=== PATIENT | female | born 1975 | race American Indian/Alaskan Native ===

== ENCOUNTER 2017-01-18 06:02 | Observation (INO) | payer BC ==
[2017-01-12 12:03] LABS: Basophils % (Auto) 0.6 % (0.0-1.8); Eosinophils % (Auto) 0.5 % (0.0-4.3); Hematocrit 34.4 % (30.3-42.9); Hemoglobin 10.8 gm/dl (10.1-14.3); Mean Corpuscular HGB Conc 31 % (30-34); Mean Corpuscular Volume 82 fl (79-97); Platelet Count 456 K/mm3 (140-440); Red Blood Count 4.19 M/mm3 (3.65-5.03); White Blood Count 6.2 K/mm3 (4.5-11.0)
--- NOTE | 2017-01-12 12:03 | Anesthesia Consultation ---
Anesthesia Consult and Med Hx Date of service: 01/12/17 - Airway Anesthetic Teeth Evaluation: Good, Crowns (top left molar) ROM Head & Neck: Adequate Mental/Hyoid Distance: Adequate Mallampati Class: Class II Intubation Access Assessment: Probably Good - Pulmonary Exam CTA: Yes - Cardiac Exam Cardiac Exam: RRR - Pre-Operative Health Status ASA Pre-Surgery Classification: ASA2 Proposed Anesthetic Plan: General - Pulmonary Hx Smoking: No Hx Asthma: No Hx Sleep Apnea: No - Cardiovascular System Hx Hypertension: No - Central Nervous System Hx Seizures: No CVA: No Hx Psychiatric Problems: No - Gastrointestinal Hx Gastroesophageal Reflux Disease: Yes - Endocrine Hx Renal Disease: No Hx Liver Disease: No Hx Thyroid Disease: No - Hematic Hx Anemia: Yes - Other Systems Hx Alcohol Use: Yes (occas) Hx Cancer: No Hx Obesity: Yes - Additional Comments Anesthesia Medical History Comments: DISCUSSED TAP BLOCK BUT PATIENT DID NOT WANT ONE. NO PRIOR ANESTHESIA PROBLEMS.
[2017-01-12 12:07] LABS: Mean Corpuscular Hemoglobin 26 pg (28-32); Red Cell Distribution Width 20.7 % (13.2-15.2)
--- NOTE | 2017-01-17 18:23 | History and Physical Report ---
History of Present Illness Date of examination: 01/12/17 Chief complaint: Severe dysmenorrhea and menorrhagia with a history of anemia History of present illness: Past History : 3 Term Births: 2 Premature Births: 0 Living Children: 2 Para: 2 Aborta: 1 Elect. 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 Abnormal PAP: positive Infection History HIV Risk Eval: no Hx of STD: None Active Medications (reviewed today): IBUPROFEN 800 MG TABS (IBUPROFEN) 1 po TID (PRN) OXYCODONE-ACETAMINOPHEN 5-325 MG TABS (OXYCODONE-ACETAMINOPHEN) 1-2po q6h NAPROSYN 250 MG ORAL TABS (NAPROXEN) 2 tabs po with onset of pain then 1 tab po q6hrs prn IRON CR-TABS (FERROUS FUMARATE CR-TABS) GOODYS EXTRA STRENGTH PACK ([id number] PACK) Current Allergies (reviewed today): No known allergies Past Medical History: Reviewed history from 07/27/2013 and no changes required: Anemia Past Surgical History: Reviewed history from 08/02/2008 and no changes required: Tubal Ligation Social History: Reviewed history from 12/01/2016 and no changes required: Patient is , Smoking History: Patient has never smoked. Risk Factors: Smoked Tobacco Use: Never smoker Alcohol use: yes PAP Smear History: Date of Last PAP Smear: 12/01/2016 Previous Tobacco Use: Signed On - 12/29/2016 Smoked Tobacco Use: Never smoker Smokeless Tobacco Use: Never Passive smoke exposure: no Drug use: no HIV high-risk behavior: no Caffeine use: 2 drinks per day Previous Alcohol Use: Signed On - 12/29/2016 Alcohol use: yes Type: occ Drinks per day: social Exercise: no Seatbelt use: 100 % Sun Exposure: rarely PAP Smear History: Date of Last PAP Smear: 12/01/2016 Review of Systems General Denies fever, chills, sweats, anorexia, fatigue, weakness, malaise, weight loss and sleep disorder. Complains of menorrhagia and painful periods. Denies vaginal discharge, incontinence, dysuria, hematuria, urinary frequency, amenorrhea, abnormal vaginal bleeding, pelvic pain, genital sores, decreased libido, painful sex, urinary urgency, hot flashes, vaginal dryness, vaginal itching and vaginal odor. CV Denies chest pains, palpitations, syncope, dyspnea on exertion, orthopnea, PND and peripheral edema. Resp Denies cough, dyspnea at rest, excessive sputum, hemoptysis, wheezing and pleurisy. GI Denies nausea, vomiting, diarrhea, constipation, change in bowel habits, abdominal pain, melena, hematochezia, jaundice, gas/bloating, indigestion/ heartburn, dysphagia and odynophagia. Endo Denies cold intolerance, heat intolerance, polydipsia, polyphagia, polyuria and unusual weight change. Breast Denies left breast lump, right breast lump, nipple discharge, bloody discharge from nipple, breast pain, abnormal mammogram and breast enlargement. MS Denies back pain, joint pain, joint swelling, muscle cramps, muscle weakness, stiffness, arthritis, sciatica, restless legs, leg pain at night and leg pain with exertion. Derm Denies rash, itching, dryness and suspicious lesions. Neuro Denies paralysis, paresthesias, headache, seizures, tremors, vertigo, transient blindness, frequent falls, frequent headaches and difficulty walking. Psych Denies depression, anxiety, irritability and mood swings. Eyes Denies blurring, diplopia, irritation, discharge, vision loss, eye pain and photophobia. ENT Denies earache, ear discharge, tinnitus, decreased hearing, nasal congestion, nosebleeds, sore throat and hoarseness. Allergy Denies urticaria, allergic rash, hay fever and recurrent infections. Heme Denies abnormal bruising, bleeding and enlarged lymph nodes. Physical Exam Appearance: well developed, well nourished, no acute distress Other Exams Lungs: no rales, rhonchi, or wheezes Abdomen: soft, non-tender, no masses, Skin: no ulcers, xanthomas Lymph: no cervical, axillary, or inguinal adenopathy Extremities: normal alignment, no joint enlargement, crepitus, masses or tenderness; normal tone and strength Genitourinary Exam Vulva: normal, no lesions or discharge Urethral meatus: normal size and location, no lesions or discharge Urethra: no discharge Bladder: no cystocele Vagina: normal appearance, no discharge, lesions. No evidence of cystocele or rectocele. Cervix: normal appearance, no lesions, no discharge Uterus: normal position, midline, mobile Adnexa: no masses or tenderness Impression & Recommendations: Problem # 1: Menorrhagia (ICD-626.2) (HIG28-G78.0) Diagnosis explained to patient . Questions answered. Discussed with patient various medical and surgical therapies common for treatment: Hormonal/medical therapy,endometrial ablation or hysterectomy. She desires to proceed with hysterectomy with removal of fallopian tubes Consent reviewed and signed . Possible laparoscopy or laparotomy explained to patient. The risks and alternatives for this surgery were reviewed with the patient. She was informed of possible bleeding, infection, injury to bowel, bladder, ureters or other adjacent organs. She desires ovarian consservation. She was informed she may require surgery later to have her ovaries removed for a benign or mailgnant condition. The patient was instructed/informed the following: The normal length of hospital stay for this procedure. Nothing to eat or drink after midnight the evening prior to surgery. Clear liquids the day before surgery. Fleets enema the day prior to surgery. Pre-op instruction sheets given. Wound care instructions given. Infection precautions reviewed, patient to call for any signs or symptoms of infection. The usual discomforts associated with this procedure were detailed. Proper use of pain medicines was reviewed. Patient was given ample opportunity to have all her questions answered before signing informed consent. Problem # 2: DYSMENORRHEA (ICD-625.3) (WLT01-U30.6) It was extensively explained to her that her pain may persist, recur or change in nature due to the difficulty with diagnosis chronic pelvic pain or development of adhesions. She declined other treatment options at this time Medications Added to Medication List This Visit: 1) Ibuprofen 800 Mg Tabs (Ibuprofen) .... 1 po tid (prn) 2) Oxycodone-acetaminophen 5-325 Mg Tabs (Oxycodone-acetaminophen) .... 1-2po q6h Prescriptions: IBUPROFEN 800 MG TABS (IBUPROFEN) 1 po TID (PRN) #30 x 1 Entered and Authorized by: Mel Chang MD Method used: Print then Give to Patient RxID: [id number] OXYCODONE-ACETAMINOPHEN 5-325 MG TABS (OXYCODONE-ACETAMINOPHEN) 1-2po q6h #30 x 0 Entered and Authorized by: Mel Chang MD Method used: Print then Give to Patient RxID: [id number] Medications and Allergies Allergies Allergy/AdvReac Type Severity Reaction Status Date / Time No Known Allergies Allergy Verified 01/10/17 12:49 Home Medications Medication Instructions Recorded Confirmed Last Taken Type Ferrous Sulfate [Feosol] 325 mg PO BID 01/10/17 01/10/17 Unknown History Active Meds: Active Medications Celecoxib (Celebrex) 200 mg PO PREOP NR Stop: 01/18/17 23:59 Famotidine (Pepcid) 20 mg PO PREOP NR Stop: 01/18/17 23:59 Gabapentin (Neurontin) 300 mg PO PREOP NR Stop: 01/18/17 23:59 Sodium Chloride (Nacl 0.9% 1000 Ml) 1,000 mls @ 75 mls/hr IV DIRECT [facility] Midazolam HCl (Versed) 2 mg IV PREOP NR Stop: 01/18/17 23:59 Exam Vital Signs Temp Pulse Resp BP 97.7 F 80 14 116/76 01/12/17 11:30 01/12/17 11:30 01/12/17 11:30 01/12/17 11:30 Results - Labs 01/12/17 11:45 Assessment and Plan - Patient Problems (1) Menorrhagia Status: Acute Qualifiers: Menorrahagia type: M (2) Dysmenorrhea Status: Acute (3) Anemia Status: Acute Qualifiers: Anemia type: A Iron deficiency anemia type: chronic blood loss Vitamin B12 deficiency anemia type: V Folate deficiency anemia type: F Bone marrow failure anemia type: B Hemolytic anemia type: H Other causes of anemia: O Qualified Code(s): D50.0 - Iron deficiency anemia secondary to blood loss ( chronic)
[~2017-01-18 06:02] MED LIST: ANCEF/STERILE WATER 2 GM/20 ML 2 GM/20 ML SYRINGE IV NR; NACL 0.9% 1000 ML 1,000 ML IV SCH; NEURONTIN PO NR; PEPCID PO NR; VERSED IV NR
[2017-01-18] MEDS ORDERED: NACL BACTERIOSTATIC INFILTRATI ONE (06:29)
[2017-01-18] MEDS ORDERED: NEOSPORIN GU IR ONE ×2 (07:15→09:27)
[2017-01-18] MEDS ORDERED: ZEMURON IV ONE (07:20)
[2017-01-18] MEDS ORDERED: DILAUDID ONE (07:20)
[2017-01-18] MEDS ORDERED: DIPRIVAN 10 MG/ML IV ONE (07:20)
[2017-01-18] MEDS ORDERED: XYLOCAINE MPF 2% ONE (07:20)
[2017-01-18] MEDS ORDERED: ZOFRAN IV PRN ×2 (07:28→12:39)
--- NOTE | 2017-01-18 07:28 | Anesthesia Day of Surgery ---
Anesthesia Day of Surgery - Day of Surgery Patient Examined: Yes Patient H&P Reviewed: Yes Patient is NPO: Yes
[2017-01-18] MEDS ORDERED: CALCIUM CHLORIDE IV ONE (07:43)
[2017-01-18] MEDS ORDERED: THROMBIN (BOVINE) TP ONE (07:43)
--- NOTE | 2017-01-18 08:05 | Admit Criteria Form ---
Admission Criteria Documentation: AMBULATORY SURGERY EXCEPTION CRITERIA Ambulatory Surgery Exception Criteria ( Place 'X' for any and all applicable criteria): Surgery or procedure performed on ambulatory basis may require inpatient stay for[A] ANY ONE of the following(1)(2)(3)(4)(5)(6)(7)(8)(9): [X] I. A preoperative situation, condition, or finding that warrants inpatient stay as indicated by ANY ONE of the following: [X] a) Inpatient care needed because of severity of a disease or condition rather than the surgery (eg, severe cardiac or respiratory disease, severe infection) (15) (16 ) (17) (18) [] b) Emergent procedure (eg, angioplasty for acute ischemia)(19) [] c) Complex surgical approach or situation as indicated by ANY ONE of the following(3): [] i) Open approach needed instead of usual endoscopic, transcatheter, or other less invasive procedure [] ii) Difficult approach because of previous operation [] iii) Airway monitoring required after open neck procedures(20)(21) [] iv) Large mass requiring unusually extensive dissection [] v) Additional complicating feature requiring inpatient care (eg, drain management)(22(23): [] d) Major surgery in a pt with high anesthetic risk as indicated by ANY ONE of the following (2)(3)(5)(7)(8): [] i) ASA risk class III or higher (severe systemic disease impairing function) [D] [] ii) Advanced age (eg, older than 85 years)(14)(24) [] iii) Symptomatic heart failure(25) [] iv) Symptomatic asthma or COPD(8)(21) [] v) Morbid obesity with hemodynamic or respiratory problems(20)( 21)(26)(27) [] vi) Obstructive sleep apnea(20)(21) [] vii) Former premature infants who are younger than 60 weeks [] viii) High risk for severe postoperative abnormalities (eg, severe postoperative hypocalcemia after parathyroidectomy for severe hyperparathyroidism)(27)( 28) [] ix) Unstable angina(25) [] e) Drug-related risk requiring inpatient stay as indicated by ANY ONE of the following(5)(10)(14)(32)(33) [] i) Procedure requires discontinuing drugs or other therapy (eg , antiarrhythmic medication, antiseizure medication), which necessitates inpatient observation or treatment.(18)(31) [] ii) Major surgery and high risk drug use as indicated by ANY ONE of the following: [] 1) Active abuse of cocaine or similar drug [] 2) Monoamine oxidase inhibitor use [] 3) Other drug identified as posing risk [] f) Inadequate outpatient care situation as indicated by ANY ONE of the following(5)(10)(14)(32)(33) [] i) Patient lives remote from medical facility and procedure has urgent complication potential, and temporary nearby residence cannot be arranged [] ii) Patient will have postprocedure incapacitation and inadequate assistance at home, or alternative level of care cannot be arranged. [] iii) Patient will have long general anesthesia or procedure side effect resolution time, and competent person to stay with patient on first postoperative night at home or alternative level of care cannot be arranged. []iv) Other inadequate outpatient situation that cannot be handled by other means [] II. A perioperative event, condition, or finding that warrants inpatient stay as indicated by ANY ONE of the following (1)(2)(3): [] a) Inadequate physiologic recovery: cardiovascular, respiratory, or hemodynamic status not normal or near preoperative baseline(18) [] b) Hemodynamic instability [] c) Patient not alert with near normal or baseline mental status [] d) Temperature not normal or as expected and not appropriate for outpatient treatment of condition [] e) Ambulatory or appropriate activity level status not yet achieved post procedure [E](34)(35)(36) [] f) Operative site not appropriate (eg, unexpected or excessive drainage or bleeding) [] g) Postoperative effects not resolved or adequately managed (eg, significant pain or vomiting not appropriate for outpatient or next level of care)(10)(12) [] h) Complicating features requiring inpatient care as indicated by ANY ONE of the following(37): [] i) Severe complications of procedure (eg, bowel injury, airway compromise, vascular injury,severe hemorrhage) [] ii) Extensive (eg, dissection far beyond usual scope of procedure ) or prolonged (eg, 120 minutes beyond usual) surgery needed requiring inpatient postoperative care [] iii) Conversion to an open or complex procedure that requires inpatient care (eg, open vs laparoscopic cholecystectomy, abdominal vs vaginal hysterectomy)(38) [] iv) Comorbid condition or test result identified during or post procedure that requires inpatient care (7) [] v) Malignant hyperthermia(30) [] vi) Other complicating feature requiring inpatient care(22)(23) Inpatient stay may be needed until ALL of the following are present (1)(2)(3)(4) (5)(6)(10)(14)(33)(40): []a) Physiologic recovery: cardiovascular, respiratory, and hemodynamic status normal or near preoperative baseline []b) Hemodynamic stability []c) Patient alert, with near normal or baseline mental status []d) Temperature appropriate: patient afebrile or temperature appropriate for outpt treatment of condition []e) Activity level appropriate: ambulatory or appropriate activity level post procedure []f) Operative site appropriate as indicated by ALL of the following: []i) Site dry or with expected drainage []ii) Any blood noted is as expected for procedure. []g) Postoperative effects resolved or managed as indicated by ALL of the following: []i) Pain management appropriate for outpatient (or next level of) care(10) []ii) Minimal nausea and vomiting: if present, successfully treated with oral medication(12) []iii) Headache, dizziness, or drowsiness (if present) are mild. []h) Voiding status acceptable as indicated by ANY ONE of the following: []i) Voiding spontaneously []ii) No voiding but instructions given for follow-up in 6 to 8 hours []iii) Urinary catheter in place, and instructions given for follow-up []i) Complicating features requiring inpatient care manageable at a lower level of care(37) []j) Comorbid conditions manageable at a lower level of care(37) The original [employer] content created by [employer] has been revised. The portions of the content which have been revised are identified through the use of italic text or in bold, and [employer] has neither reviewed nor approved the modified material. All other unmodified content is copyright [employer]. Please see references footnoted in the original [employer] edition 2016 Admission Criteria Met: Yes
[2017-01-18] MEDS ORDERED: ZOFRAN ONE (08:44)
[2017-01-18] MEDS ORDERED: NEOSTIGMINE ONE (08:44)
[2017-01-18] MEDS ORDERED: DECADRON ONE (08:44)
[2017-01-18] MEDS ORDERED: ROBINUL ONE (08:44)
[2017-01-18] MEDS ORDERED: MARCAINE 0.5% 30 ML INFILTRATI ONE (08:46)
[2017-01-18] MEDS ORDERED: NACL 0.9% IR ONE (09:28)
[2017-01-18] MEDS ORDERED: MARCAINE 0.5% INFILTRATI ONE (09:47)
[2017-01-18] MEDS ORDERED: NACL 0.9% 1000 ML 1,000 ML ONE (09:49)
[2017-01-18] MEDS: DILAUDID IV PRN ×4 (10:15→11:00)
[2017-01-18] MEDS ORDERED: TYLENOL PR PRN (12:39)
[2017-01-18] MEDS ORDERED: REGLAN PO PRN (12:39)
[2017-01-18] MEDS ORDERED: REGLAN IV PRN (12:39)
[2017-01-18] MEDS ORDERED: ZOFRAN PO PRN (12:39)
[2017-01-18] MEDS ORDERED: MORPHINE IV PRN (12:39)
[2017-01-18] MEDS ORDERED: TORADOL IV SCH (12:39)
--- NOTE | 2017-01-18 12:40 | Operative Report ---
Operative Report Operative Report: Date of procedure: 01/18/2017 Pre-operative diagnosis: 1. Menorrhagia 2. Severe dysmenorrhea Post-operative diagnosis: 1. Menorrhagia 2. Severe dysmenorrhea 3. Right ovarian cyst Procedure name(s): 1. Robotic-assisted total hysterectomy 2. Bilateral salpingectomy 3. Right ovarian cystectomy Surgeon: Mel Chang MD Cdl Instructor: Lakshmi Gamez Anesthesia: General anesthesia Findings: Uterus is sounded to 9 cm. Enlarged left fallopian tube. Right ovarian cyst. Grossly normal appendix. Grossly normal uterus and cervix. Grossly normal left ovary. Anesthesiologist: [] Complications: None EBL: 50 mL Procedure: After risks, benefits complications, consequences, and alternatives for this procedure were discussed the patient, and she voiced understanding and desired to proceed, she was taken to the OR where general anesthesia was induced. She was placed in the dorsolithotomy position, exam under anesthesia was unremarkable. She was then prepped and draped in usual sterile fashion. Timeout was performed. Padilla catheter was introduced into the bladder. A bivalve speculum was introduced into the vagina, and the anterior lip of the cervix was grasped with a single-tooth tenaculum. The uterus was sounded to approximately 9 cm. The cervix was progressively dilated to allow the large the V care uterine manipulator. The tenaculum and speculum were removed and the Vcare manipulator was secured in place. A solution saturated laparotomy sponge was placed in the vagina. Sterile gloves were placed and attention was turned to the abdomen. A 12 mm Optiview trocar with scope and camera attached was placed through a midline vertical incision was approximately 10 cm superior to the elevated fundus of the uterus. The trocar with camera attached was placed under direct visualization. No bowel, bladder, ureteral or major blood vessel injury was noted. The abdomen was insufflated. Patient was placed in steep Trendelenburg position. Additional trocars were placed in the following positions: 8 mm robotic trocars were placed in the bilateral midclavicular lower abdominal region approximately 10 cm lateral to the midline incision. An additional 5 mm trocar was placed in the right lateral lower abdominal region approximately 2 cm superior to the anterior superior iliac crest. The midline trocar was removed and a 0 Vicryl suture was placed through the fascia of the incision using the Alen-Naldo fascia closure device. The trocar was then reintroduced. Once the trocars were in the proper position the robot was engaged. The instruments were introduced into the 8 mm trochars. Attention was turned to console. The uterus was elevated, the utero-ovarian ligaments were clamped, cauterized and incised bilaterally using 30 W of energy. Bilateral salpingectomy was performed. The left tube was adhesed to the left ovary and with both blunt and sharp dissection the tube was released and then removed. Good flow to the left ovary was noted at the end of the procedure. Then the round ligaments were clamped, cauterized and incised bilaterally. The anterior leaf of the broad ligament was elevated with both blunt and sharp dissection the bladder flap was created. Once the bladder appeared to be away from the operative field attention was turned the posterior leaf of the broad ligaments. The ligaments were elevated and dissected away from the uterine vessels. Once the outline of the [facility] [employer] uterine manipulator was visualized, the uterine vessels were clamped and cauterized bilaterally. Once blanching of the uterus was noted, and the posterior outline of the Vcare manipulator was visualized, and confirmed, colpotomy was performed down to the cup of the manipulator. This incision was extended in a circumferential manner to 9:00 and 3:00 positions. The uterine vessels were clamped, cauterized and incised. The colpotomy was completed. The uterus was then delivered through the vagina. Attention was turned to the adnexa. Right salpingectomy was performed. Cyst was removed through the vagina. The pelvis was irrigated with solution warm saline. Once hemostasis was noted the vagina was reapproximated using the V LOC 180 suture. The pelvis was again irrigated with warm normal saline. Once hemostasis was noted, platelet rich plasma was applied for further hemostasis followed by platelet poor plasma to prevent adhesions. The ureters were noted to be peristaltic and away from the operative field. The abdomen and pelvis were again visualized, no bowel, bladder, ureteral or major vascular injury was noted , hemostasis was also noted. The patient's taken out of Trendelenburg position. The midline trocar was removed and the fascia was ligated. The trocars were removed. The skin incisions were infused and Marcaine without epinephrine. The skin incisions were approximated using 4-0 Vicryl in a subcuticular manner. The incisions were then sealed with Octylseal.The laparotomy sponge was removed from the vagina, and hemostasis was noted. The patient tolerated the procedure well and was taken to recovery room in stable condition. Counts were correct x3. Clear yellow urine was noted draining into the Padilla catheter was noted.
--- NOTE | 2017-01-18 13:32 | Post Anesthesia Evaluation ---
- Post Anesthesia Evaluation Patient Participated: Yes Airway Patent: Yes Stable Respiratory Function: Yes Nausea/Vomiting: No Temp > 96.8F: Yes Pain Manageable: Yes Adequeate Hydration: Yes Anesthesia Complications: No Block Receding Appropriately: Not Applicable Patient on Ventilator: No
[2017-01-18] MEDS: LACTATED RINGERS 1,000 ML IV SCH ×2 (13:39→20:00)
[2017-01-18] MEDS: TYLENOL PO SCH ×2 (16:33→22:47)
[2017-01-18] MEDS: ANCEF/NS 1 GM/50 ML 1 GM/50 ML BAG IV SCH (16:33)
--- NOTE | 2017-01-18 19:57 | Progress Note ---
Assessment and Plan s/p RATH, (B) salpingectomy, (R) ovarian cystectomy Doing well, operative findings and procedure explained, questions answered. Importance of amubulation and IC explained. Plan of care discussed. She voiced understanding and agrees with plan of care. - Patient Problems (1) Menorrhagia Current Visit: Yes Status: Acute (2) Dysmenorrhea Current Visit: Yes Status: Acute (3) Anemia Current Visit: Yes Status: Acute Subjective - Subjective Date of service: 01/18/17 Principal diagnosis: s/p RATH, (B) salpingectomy, (R) ovarian cystectomy Interval history: Pt sat up to side of bed with my assistance, c/o gas pain, no bleeding Objective - Vital Signs Latest vital signs: Vital Signs Temp Pulse Pulse Resp BP BP Pulse Ox 01/18/17 16:45 98.0 F 72 18 120/76 01/18/17 12:10 16 01/18/17 11:45 87 13 126/73 98 01/18/17 11:30 74 12 140/88 96 01/18/17 11:15 78 14 139/91 100 01/18/17 11:00 78 13 142/85 96 01/18/17 10:45 74 12 154/85 99 01/18/17 10:40 18 01/18/17 10:25 71 14 159/85 94 01/18/17 10:15 16 01/18/17 10:10 71 17 157/86 100 01/18/17 10:05 72 15 150/83 100 01/18/17 10:00 79 20 148/87 100 01/18/17 09:57 97.2 F L 77 17 144/81 100 01/18/17 06:52 98.1 F 100 H 18 135/88 100 01/18/17 06:41 98.1 F 100 H 18 135/88 100 Intake and Output 01/18/17 01/18/17 01/18/17 06:59 14:59 22:59 Intake Total 300 585 910 Output Total 90 Balance 300 495 910 Intake: IV 300 225 550 ANCEF/NS 1 GM/50 ML 1 gm 50 In 50 ml @ 100 mls/hr IV Q8H [facility]MA Rx#:[id number] Lactated Ringers 1,000 ml 125 500 @ 125 mls/hr IV DIRECT [facility] Rx#:[id number] Oral 360 360 Output: Urine 90 Other: Total, Intake Amount 360 360 Voiding Method Toilet Indwelling Catheter # Voids Indwelling Catheter 500 - Exam Breasts: Present: deferred Cardiovascular: Present: Regular rate Lungs: Present: Clear to auscultation, Normal air movement Abdomen: Present: normal appearance, soft, normal bowel sounds Extremities: Present: normal. Absent: tenderness, edema Incision: Present: normal, dry, intact
[2017-01-18] MEDS: PERCOCET 5/325 PO PRN (19:59)
[2017-01-18] MEDS: PEPCID IV SCH (21:42)
[2017-01-19] MEDS: TYLENOL PO SCH
[2017-01-19] MEDS: ANCEF/NS 1 GM/50 ML 1 GM/50 ML BAG IV SCH (01:55)
[2017-01-19] MEDS: LACTATED RINGERS 1,000 ML IV SCH (04:00)
[2017-01-19] MEDS: PERCOCET 5/325 PO PRN ×2 (06:06→12:25)
[2017-01-19 06:08] LABS: Hematocrit 30.2 % (30.3-42.9); Hemoglobin 9.7 gm/dl (10.1-14.3)
[2017-01-19] MEDS ORDERED: MYLICON PO PRN (10:00)
[2017-01-19] MEDS: PEPCID IV SCH (10:57)
--- NOTE | 2017-01-19 13:11 | Progress Note ---
Assessment and Plan - Patient Problems (1) Menorrhagia Current Visit: Yes Status: Resolved Qualifiers: Menorrahagia type: M (2) Dysmenorrhea Current Visit: Yes Status: Resolved (3) Anemia Current Visit: Yes Status: Chronic Qualifiers: Anemia type: A Iron deficiency anemia type: other iron deficiency Vitamin B12 deficiency anemia type: V Folate deficiency anemia type: F Bone marrow failure anemia type: B Hemolytic anemia type: H Other causes of anemia: O Qualified Code(s): D50.8 - Other iron deficiency anemias (4) History of robot-assisted laparoscopic hysterectomy Current Visit: Yes Status: Acute Plan to address problem: Will observe for now, INT, Tay Possible d/c home this pm Subjective - Subjective Date of service: 01/19/17 Principal diagnosis: s/p RATH, (B) salpingectomy, (R) ovarian cystectomy Interval history: Pt resting in bed, still with lower abdominal gas pain. NO bleeding, n/v, not sure if she's ready to go home Patient reports: voiding normally, flatus, no pain well controlled Objective - Vital Signs Latest vital signs: Vital Signs Temp Pulse Pulse Resp BP 01/19/17 12:10 98.1 F 74 18 126/76 01/19/17 08:05 98.6 F 66 18 118/74 01/19/17 06:06 18 01/19/17 04:00 98.6 F 80 16 109/57 01/19/17 00:00 98.6 F 73 18 112/62 01/18/17 22:47 18 01/18/17 19:59 18 01/18/17 19:30 98.6 F 71 18 133/90 01/18/17 16:45 98.0 F 72 18 120/76 Intake and Output 01/18/17 01/19/17 01/19/17 22:59 06:59 14:59 Intake Total 1960 2100 480 Output Total 800 2300 100 Balance 1160 -200 380 Intake: IV 1600 1000 ANCEF/NS 1 GM/50 ML 1 gm 100 In 50 ml @ 100 mls/hr IV Q8H [facility] Rx#:[id number] Lactated Ringers 1,000 ml 1500 1000 @ 125 mls/hr IV DIRECT [facility]MA Rx#:[id number] Oral 360 300 480 Intake, Free Water 800 Output: Urine 800 2300 100 Indwelling Catheter 800 2300 Void 100 Other: Total, Intake Amount 360 300 240 Total, Output Amount 800 600 100 Voiding Method Indwelling Catheter Toilet # Voids Indwelling Catheter 500 Void 1 - Exam Breasts: Present: deferred Cardiovascular: Present: Regular rate Lungs: Present: Clear to auscultation Abdomen: Present: normal appearance, soft, normal bowel sounds. Absent: distention Extremities: Present: normal. Absent: tenderness, edema Incision: Present: normal, dry, intact - Labs Labs: Abnormal lab results 01/19/17 Range/Units 05:49 Hgb 9.7 L (10.1-14.3) gm/dl Hct 30.2 L (30.3-42.9) %
--- NOTE | 2017-01-19 16:08 | Discharge Summary ---
Providers - Providers Date of Admission: 01/18/17 10:43 Date of discharge: 01/19/17 Attending physician: MATTEO SCANLON Primary care physician: [employer]IST Hospitalization Condition: Good Hospital course: Spoke with patient by home.Postoperative precautions and instructions given Pt desires d/c home, feels much better Disposition: DISCHARGED TO HOME OR SELFCARE - Discharge Diagnoses (1) Menorrhagia Status: Resolved Qualifiers: Menorrahagia type: M (2) Dysmenorrhea Status: Resolved (3) Anemia Status: Chronic Qualifiers: Anemia type: A Iron deficiency anemia type: other iron deficiency Vitamin B12 deficiency anemia type: V Folate deficiency anemia type: F Bone marrow failure anemia type: B Hemolytic anemia type: H Other causes of anemia: O Qualified Code(s): D50.8 - Other iron deficiency anemias (4) History of robot-assisted laparoscopic hysterectomy Status: Acute Core Measure Documentation - Palliative Care Palliative Care/ Comfort Measures: Not Applicable - Core Measures Any of the following diagnoses?: none Exam - Constitutional Vitals: Temp Pulse Resp BP Pulse Ox 98.1 F 74 18 126/76 98 01/19/17 12:10 01/19/17 12:10 01/19/17 12:10 01/19/17 12:10 01/18/17 11:45 Plan Activity: other (no sex, no driving, ambulate on your property ~1mile a day) Weight Bearing Status: Non-Weight Bearing Diet: regular (drink ~100oz water a day, eat small meals frequently) Wound: open to air, keep clean and dry Special Instructions: no heavy lifting Additional Instructions: Alternate Tylenol and Ibuprofen as directed Follow up with: MATTEO SCANLON MD [Staff Physician] - (as scheduled)
[2017-01-19 16:10] VITALS: BP 124/76
== END 2017-01-19 16:50 | disposition home or self-care (01) ==
LOC: OR 06:02 → OB 10:43
PROVIDERS: ADMIT Obstetrics & Gynecology; ATTEND Obstetrics & Gynecology
DX: N92.0 Excessive and frequent menstruation with regular cycle (principal); N94.6 Dysmenorrhea, unspecified; D64.9 Anemia, unspecified
CPT/HCPCS: 36415; 58571; 81025; 85014; 85018; 85025; 86850; 86900; 86901; 88305; 88307; 96365; 96366; 96375; 96376; A4217; G0378; J0690; J1100; J1170; J1885; J2250; J2270; J2405; J2704; J2710; J7030; J7120; S2900

== ENCOUNTER 2017-07-06 08:12 | Outpatient (CLI) | payer BC ==
--- NOTE | 2017-07-06 09:27 | Mammography Report ---
Bilateral mammogram: Compared to 11/04/14. CAD study utilized. Findings: Predominantly adipose tissue bilaterally. No distinct mass or microcalcification. Focal circumscribed new asymmetry upper mid right breast. No microcalcification. Normal axilla. Impression: Focal new circumscribed asymmetry upper right breast. Recommend spot mag and if necessary sonographic examination. BI-RADS CATEGORY: 0 = Needs additional imaging evaluation ACR BI-RADS MAMMOGRAPHIC CODES: 0 = Needs additional imaging evaluation; 1 = Negative; 2 = Benign; 3 = Probably benign; 4 = Suspicious; 5 = Malignant; 6 = Known biopsy-proven malignancy COMMENT: 1. Dense breast tissue, i.e., adenosis, fibrocystic changes, etc., may obscure an underlying neoplasm. 2. Approximately 10% of cancers are not detected with mammography. 3. A negative mammography report should not delay biopsy if a clinically suspicious mass is present. COMMENT: Patient follow-up letters are generated in [employer].
== END 2017-07-06 08:13 | disposition home or self-care (01) ==
LOC: MAMMO 08:12
PROVIDERS: ATTEND Obstetrics & Gynecology
DX: Z12.31 Encounter for screening mammogram for malignant neoplasm of breast (principal)
CPT/HCPCS: 77067; G0202

== ENCOUNTER 2017-08-25 12:32 | Outpatient (CLI) | payer BC ==
--- NOTE | 2017-08-25 13:01 | Mammography Report ---
RIGHT DIGITAL DIAGNOSTIC MAMMOGRAM : 08/25/17 12:32:00 CLINICAL: Recalled for asymmetry. COMPARISON:07/06/17 screening FINDINGS: Lateralmedial and spot magnification MLO views were performed. Satisfactory effacement on the spot view and negative lateral view. IMPRESSION: Negative Mammogram. BI-RADS CATEGORY: 1 -- Negative RECOMMENDATION: Routine mammographic screening in one year. ACR BI-RADS MAMMOGRAPHIC CODES: 0 = Needs additional imaging evaluation; 1 = Negative; 2 = Benign; 3 = Probably benign; 4 = Suspicious; 5 = Malignant; 6 = Known biopsy-proven malignancy COMMENT: 1. Dense breast tissue, i.e., adenosis, fibrocystic changes, etc., may obscure an underlying neoplasm. 2. Approximately 10% of cancers are not detected with mammography. 3. A negative mammography report should not delay biopsy if a clinically suspicious mass is present. COMMENT: Patient follow-up letters are generated via our [employer] application.
== END 2017-08-25 12:33 | disposition home or self-care (01) ==
LOC: MAMMO 12:32
PROVIDERS: ATTEND Obstetrics & Gynecology
DX: R92.8 Other abnormal and inconclusive findings on diagnostic imaging of breast (principal)
CPT/HCPCS: 77066; G0204

== ENCOUNTER 2018-07-07 08:40 | Outpatient (CLI) | payer BC ==
--- NOTE | 2018-07-10 08:36 | Mammography Report ---
BILATERAL DIGITAL SCREENING MAMMOGRAM with CAD: 07/07/18 08:40:00 CLINICAL: Routine screening. COMPARISON:08/25/17 and 06/26/17 FINDINGS: Breasts are mostly fatty with a few residual bilateral fibroglandular densities. No mass, architectural distortion or suspicious calcifications. IMPRESSION: No mammographic evidence of malignancy. BI-RADS CATEGORY: 1 - - Negative RECOMMENDATION: Routine mammographic screening in one year. COMMENT: Patient follow-up letters are generated by our [employer] application.
== END 2018-07-07 08:41 | disposition home or self-care (01) ==
LOC: MAMMO 08:40
PROVIDERS: ATTEND Obstetrics & Gynecology
DX: Z12.31 Encounter for screening mammogram for malignant neoplasm of breast (principal); E66.9 Obesity, unspecified; K21.9 Gastro-esophageal reflux disease without esophagitis
CPT/HCPCS: 77067